=== PATIENT | female | born 1965 | race Caucasian/White ===

== ENCOUNTER 2017-06-14 08:00 | Emergency (ER) | payer OTHER ==
[~2017-06-14] VITALS: Ht 170.2 cm; Wt 97.5 kg
[~2017-06-14 08:00] MED LIST: ADVAIR DISKUS 21 DSK INH; AVONEX 3030 MCG/0.5 IM; HYZAAR 12.5 MG-1 TA1 PO; K-DUR 20MEQ TA20 MEQ PO; LOSARTAN POTASS1 TA1 PO; LOSARTAN-HCTZ 50-12. PO; SINGULAIR10 M1 PO; VITAMIN D5000 I1 PO; ZINC SULFATE 2220 MG PO
--- NOTE | 2017-06-14 08:13 | ED DYSPNEA/ASTHMA COMPLAINT ---
History of Present Illness General Chief Complaint: General Adult Stated Complaint: PT STATES "I THINK I HAVE PNEUMONIA" Source: patient Exam Limitations: no limitations Vital Signs & Intake/Output Vital Signs & Intake/Output ED Intake and Output 06/15 0000 06/14 1200 Intake Total 0 Output Total Balance 0 Intake, Oral 0 Patient 215 lb Weight Weight Reported by Patient Measurement Method Allergies Coded Allergies: NO KNOWN ALLERGIES (03/16/14) Reconcile Medications Albuterol Sulfate (Proair Hfa) 90 MCG HFA.AER.AD 2 PUF INH Q4-6 PRN PRN SHORTNESS OF BREATH (Reported) Albuterol Sulfate (Proair Hfa) 90 MCG HFA.AER.AD 2 PUF INH Q4-6 PRN PRN wheezes Fluticasone/Salmeterol (Advair 250-50 Diskus) 250 MCG-50 MCG/DOSE BLST.W.DEV 1 PUF INH BID BREATHING PROBLEMS (Reported) Losartan Potassium 50 MG TABLET 1 TAB PO DAILY heart (Reported) Methylprednisolone. (Medrol) 4 MG TAB.DS.PK 1 DP PO AD flu 6 on day 1 then reduce by one tablet daily until gone Montelukast Sodium (Singulair) 10 MG TABLET 1 TAB PO DAILY ALLERGIES ( Reported) Triage Note: PT STATES SHE IS HAVING A HARD TIME BREATHING. C/O DRY COUGH, ACHY FEELING. STATES SHE HAS HX OF PNEUMONIA AND HER HAS BRONCHITIS NOW. PT DENIES CP. O2 SAT 97% Triage Nurses Notes Reviewed? yes Onset: Gradual Duration: day(s): Timing: recent history Severity: moderate Activities at Onset: activity Prior Episodes/Possible Cause: occasional episodes HPI: 51YO Female with hx of HTN, asthma presents to ED complaining of dry cough and dyspnea on exertion x 3 days. Patient takes Proair, OTC nasal spray, and antitussive which helps with her cough symptoms. The patient also reports shoulder pain and back pain with her cough. The patient reports her has bronchitis and her step daughter has PNA. The patient had her pneumococcal vaccine 6 years ago. The patient denies tobacco use, NAUSEA, vomiting, diarrhea, sore throat, fevers, chills. ([place] ESPINOZA,Meaghan Mitchell) Past History Travel History Traveled to [place] past 21 day No Medical History Any Pertinent Medical History? see below for history Cardiovascular: hypertension Respiratory: asthma History of MRSA: No History of VRE: No History of CDIFF: No Pneumonia Vaccine: 12/19/03 Influenza Vaccine: 03/07/14 Surgical History Surgical History: non-contributory Psychosocial History Who do you live with Spouse Services at Home None What is your primary language Kyrgyz Tobacco Use: Never used ETOH Use: denies use Illicit Drug Use: denies illicit drug use Family History Hx Contributory? No (Meaghan Wolf) Review of Systems Review of Systems Constitutional: Reports: no symptoms. EENTM: Reports: no symptoms. Respiratory: Reports: see HPI. Cardiovascular: Reports: no symptoms. GI: Reports: no symptoms. Genitourinary: Reports: no symptoms. Musculoskeletal: Reports: see HPI. Skin: Reports: no symptoms. Neurological/Psychological: Reports: no symptoms. Hematologic/Endocrine: Reports: no symptoms. Immunologic/Allergic: Reports: no symptoms. All Other Systems: Reviewed and Negative (Meaghan Wolf) Physical Exam Physical Exam General Appearance: well developed/nourished, no apparent distress, alert, awake Head: atraumatic, normal appearance Eyes: Bilateral: normal appearance. Ears, Nose, Throat: normal pharynx, normal ENT inspection, hearing grossly normal Neck: normal inspection, supple, full range of motion Respiratory: normal breath sounds, no respiratory distress, lungs clear Cardiovascular: regular rate/rhythm Extremities: normal inspection, normal range of motion Neurologic/Psych: awake, alert, oriented x 3 Skin: intact, normal color, warm/dry Core Measures ACS in differential dx? No CVA/TIA Diagnosis No Sepsis Present: No Sepsis Focused Exam Completed? No (Meaghan Wolf) Progress Differential Diagnosis: asthma, bronchitis, costochondritis, CHF, COPD, musculoskeletal pain, pulmonary embolism, pneumonia, pneumothorax Plan of Care: Orders Procedure Date/time Status VIRAL CULTURE 06/14 0930 Active RAPID VIRAL INFLUENZA A 06/14 0925 Complete Add-on Test (ER Only) 06/14 0851 Active HUMAN BETA HCG SCREEN 06/14 0829 Complete TROPONIN LEVEL 06/14 0811 Complete COMPREHENSIVE METABOLIC PANEL 06/14 0811 Complete CBC WITHOUT DIFFERENTIAL 06/14 0811 Complete EKG 06/14 0811 Active Laboratory Tests 06/14/17 0930: Virus Culture Pending 06/14/17 0829: Anion Gap 13, Estimated GFR > 60, BUN/Creatinine Ratio 20.0, Glucose 146 H, Calcium 8.9, Total Bilirubin 0.5, AST 18, ALT 27, Alkaline Phosphatase 85, Troponin I < 0.01, Total Protein 7.0, Albumin 3.9, Globulin 3.1, Albumin/ Globulin Ratio 1.3, Total Beta HCG NEGATIVE, CBC w Diff NO MAN DIFF REQ, RBC 4.81, MCV 85.6, MCH 29.7, MCHC 34.7, RDW 13.4, MPV 7.5, Gran % 50.5, Lymphocytes % 24.3, Monocytes % 17.1 H, Eosinophils % 7.2 H, Basophils % 0.9, Absolute Granulocytes 2.0, Absolute Lymphocytes 1.0 L, Absolute Monocytes 0.7 H, Absolute Eosinophils 0.3, Absolute Basophils 0 Microbiology 06/14 929 NASOPHARYN: Influenza Virus A & B Rapid Smear - COMP INFLUENZA TYPE B CXR is WNL. Patient's labs are without acute abnormality. EKG is in sinus rhythm. Patient sitting in stretcher comfortably, no acute distress. No tachycardia or hypoxia. +Influenza. Will start patient on steroid pack and albuterol given her symptoms. She is out of tamiflu window. Patient to follow- up with her primary care physician. She will return with worsening symptoms or concerns. Abulatory O2 sat 95%. Patient feels ready to go home at this time. She agrees with the plan of care. PAtient discussed with Dr. Hernandez who agrees with this plan. Diagnostic Imaging: Viewed by Me: Radiology Read. Discussed w/RAD: Radiology Read. CXR Impression: PATIENT: TYLER PURVIS PRESENT AGE: 51 PATIENT ACCOUNT NO: [id number] : 63 LOCATION: [facility] ORDERING PHYSICIAN: Meaghan ESPINOZA SERVICE DATE: 06/14/17 EXAM TYPE: RAD - XRY-CHEST XRAY, TWO VIEWS EXAMINATION: XR CHEST CLINICAL INFORMATION: Cough, dyspnea COMPARISON: None TECHNIQUE: 2 views of the chest were obtained. FINDINGS: Lung volumes are symmetric. No focal consolidation is seen. No evidence of pneumothorax, pleural effusion, or pulmonary edema. The cardiomediastinal contour is unremarkable. No acute osseous findings are seen. IMPRESSION: No acute cardiopulmonary findings. DICTATED BY: Gibran Starr MD DATE/TIME DICTATED:06/14/17928 CHEESE PANCAKE ROLLER:ZAFAR DATE/TIME TRANSCRIBED:928 CONFIDENTIAL, DO NOT COPY WITHOUT APPROPRIATE AUTHORIZATION. < Electronically signed in Other Vendor System> SIGNED BY: Gibran Starr MD 06/14/17933 Initial ED EKG: sinus rhythm @88bpm, nonspecific ST changes Prior EKG: changed (03/17/14 slight t wave changes) (Meaghan Wolf) Departure Departure Disposition: HOME OR SELF CARE Condition: Stable Clinical Impression Primary Impression: Influenza B Referrals: Sparkle BAPTISTE,Gwen (PCP/Family) Additional Instructions: Take full steroid pack. Follow-up with her primary care doctor this week. Continue your albuterol inhaler. Return with any worsening symptoms or concerns. Please note that there might be incidental findings in your evaluation that are unrelated to the current emergency department visit. Please notify your primary care doctor about this emergency department visit in order to obtain and review all of the testing performed so that these incidental findings can be monitored as needed. If you had an x-ray performed, please understand that some fractures may not be seen on the initial set of x-rays. If your symptoms persist you might need a repeat set of x-rays to check for such a fracture. If you had a laceration evaluated, please understand that foreign bodies such as glass or wood may not be visible to the naked eye or on plain x-rays. If the wound becomes red, swollen, increasingly more painful or if there is any drainage from the wound, please have it reevaluated by a physician for the possibility of a retained foreign body. If you're unable to follow up as outlined in the discharge instructions please return to the emergency department. Thank you for choosing the [facility] Emergency Department for your care. It was a pleasure to serve you today. Departure Forms: Customer Survey General Discharge Information Prescriptions: Current Visit Scripts Methylprednisolone. (Medrol) 1 DP PO AD #1 DP 6 on day 1 then reduce by one tablet daily until gone Albuterol Sulfate (Proair Hfa) 2 PUF INH Q4-6 PRN PRN wheezes #1 INHAL (Meaghan Wolf) PA/HEALTH SANITARIAN Co-Sign Statement Statement: ED Attending supervision documentation- I saw and evaluated the patient. I have also reviewed all the pertinent lab results and diagnostic results. I agree with the findings and the plan of care as documented in the PA's/HEALTH SANITARIAN's documentation. x I have reviewed the ED Record and agree with the PA's/HEALTH SANITARIAN's documentation. [] Additions or exceptions (if any) to the PAs/HEALTH SANITARIAN's note and plan are summarized below: [] (Mary BAPTISTE,Yang) Critical Care Note Critical Care Note Critical Care Time: non-applicable ([place] ESPINOZA,Meaghan Mitchell)
[2017-06-14 08:39] LABS: ABSOLUTE BASOPHIL COUNT 0 /CUMM (0.0-0.2); ABSOLUTE EOSINOPHIL COUNT 0.3 /CUMM (0.0-0.7); ABSOLUTE MONOCYTE COUNT 0.7 /CUMM (0.10-0.60); BASOPHIL % 0.9 % (0.0-2.0); EOSINOPHIL % 7.2 % (0-5); GRANULOCYTE % 50.5 % (42.2-75.2); HEMATOCRIT 41.2 % (37-47); MEAN CORPUSCULAR HGB 29.7 PG (27.0-31.0); MEAN CORPUSCULAR HGB CONC 34.7 G/DL (33.0-37.0); MEAN CORPUSCULAR VOLUME 85.6 FL (81.0-99.0); MEAN PLATELET VOLUME 7.5 FL (7.4-10.4); PLATELET COUNT 305 /CUMM (130-400); RBC DISTRIBUTION WIDTH 13.4 % (11.5-14.5); RED BLOOD CELL CT 4.81 /CUMM (4.20-5.40)
[2017-06-14] MEDS ORDERED: LOSARTAN POTASS50 M1 PO (09:30)
[2017-06-14] MEDS ORDERED: PROAIR HFA8.5 GM INH ×2 (09:31→10:12)
[2017-06-14] MEDS ORDERED: ADVAIR 250-501 EACH INH (09:31)
--- NOTE | 2017-06-14 09:34 | RADIOLOGY REPORT ---
EXAMINATION: XR CHEST CLINICAL INFORMATION: Cough, dyspnea COMPARISON: None TECHNIQUE: 2 views of the chest were obtained. FINDINGS: Lung volumes are symmetric. No focal consolidation is seen. No evidence of pneumothorax, pleural effusion, or pulmonary edema. The cardiomediastinal contour is unremarkable. No acute osseous findings are seen. IMPRESSION: No acute cardiopulmonary findings.
[2017-06-14] MEDS ORDERED: MEDROL4 M2 PO (10:12)
[2017-06-14 10:28] VITALS: BP 139/79
== END 2017-06-14 10:29 ==
LOC: ERH 08:00
PROVIDERS: Physician Assistant
DX: J10.1 Influenza due to other identified influenza virus with other respiratory manifestations (principal); R06.00 Dyspnea, unspecified
CPT/HCPCS: 71046; 87804; 87804-59; 93005; 93010